=== PATIENT | female | born 1960 | race Caucasian/White ===

== ENCOUNTER → 2022-05-20 | Day surgery (SDC) | payer OTHER ==
[2022-05-17 13:14] VITALS: BMI 37.5
[~2022-05-20] MED LIST: ACETAMINOPHEN INJECTION 100 ML IVPB ONE; BUPIVACAINE HCL/PF 0.25% (2.5MG/ML) 10 ML VIAL IJ ONE; BUPIVACAINE HCL/PF 0.25% (2.5MG/ML) 10 ML VIAL ONE; DEXAMETHASONE SOD PHOSPHATE 4 MG/1 ML VIAL ONE; LACTATED RINGERS SOLUTION 1,000 ML IV SCH; LIDOCAINE HCL 1%, 10 MG/ML (20ML VIAL) ONE; LIDOCAINE HCL 1%, 10 MG/ML (50 mL VIAL) INF ONE; MIDAZOLAM HCL 2 MG/2 ML SINGLE DOSE VIAL ONE; ONDANSETRON 4 MG/2 ML VIAL IVPUSH PRN; ONDANSETRON 4 MG/2 ML VIAL ONE; PROPOFOL 40 ML ONE; ROCURONIUM BROMIDE 50 MG/5 ML SYRINGE ONE; ceFAZolin SODIUM 1 GM VIAL IVPB ONE; ceFAZolin SODIUM 1 GM VIAL ONE; oxyCODONE HCL 10 MG SUSTAINED ACTING TABLET ONE; oxyCODONE HCL 5 MG TABLET PO PRN
[2022-05-20 18:19] VITALS: RESP 18
[2022-05-20 18:27] VITALS: BP 149/73; PULSE 72; TEMP 98
== END | disposition home or self-care (01) ==
LOC: JASU-SURG 05:09
PROVIDERS: ATTEND Surgery
PROC: 0WQF0ZZ Repair Abdominal Wall, Open Approach (ICD-10-PCS; principal; 2022-05-20 11:40)
DX: K43.9 Ventral hernia without obstruction or gangrene (principal)
CPT/HCPCS: 88302-TC; 94760